=== PATIENT | male | born 1955 | race Caucasian/White ===

== ENCOUNTER 2023-04-26 10:17 | Outpatient (CLI) | payer MEDICARE, OTHER, SELFPAY | END 2023-04-26 10:18 | disposition home or self-care (01) | LOC: LAB 04-27 12:03 | PROVIDERS: PCP Family Medicine; Visit Provider Orthopaedic Surgery | DX: Z01.818 Encounter for other preprocedural examination (principal) | CPT/HCPCS: 86850; 86900; 86901 ==

== ENCOUNTER 2023-04-28 06:12 | Day surgery (SDC) | payer MEDICARE, OTHER, SELFPAY ==
[2023-04-28] VITALS (30 sets, daily range): BP systolic 94–149; BP diastolic 57–110; PULSE 62–94; RESP 14–20; TEMP 35.8–36.8; O2SAT 92–100; BMI 23.9
--- OUTSIDE RECORDS SUMMARY | 2023-04-28 06:14 | XMS_ITS | Clinical Summary ---
Author Name Unknown Organization [facility] Address [place], [place] [address] Care Team Providers Care Resident Services Supervisor Name Role Phone Kina Amador DO Primary Care Provider [phone] Allergies No known active allergies Medications Medication Sig Dispensed Refills Start Date End Date Status glucosamine-chondr oitin, 500-400 mg, (COSAMIN DS 500/400) 500-400 mg cap Take 1 capsule by mouth 3 times daily. 0 04/15/2013 Active Saw [place] Fruit 450 mg capsule Take by mouth. 0 04/15/2013 Active miscellaneous medical supply (Blood Pressure Cuff) miscIndications:El evated BP without diagnosis of hypertension As directed. BP cuff 1 Each 0 11/27/2021 Active diclofenac topical (VOLTAREN) 1 % gelIndications:Art hritis of knee, left,Chronic pain of left knee Apply 4 g topically to affected area(s) four times daily. 350 g 1 06/23/2022 Active turmeric root extract 500 mg cap Take by mouth. 0 Ac tive tadalafiL (CIALIS) 10 mg tabletIndications: Erectile dysfunction, unspecified erectile dysfunction type Take 2 tablets by mouth (20mg total ) once 30min. Before sexual activity (Max 20mg daily) 20 Tablet 6 11/27/2021 04/15/2023 Discontinue d(*Patient states no longer taking) Active Problems Problem Noted Date Diagnosed Date Lichen planus 06/23/2022 Actinic keratoses 04/15/2013 Encounters Date Type Department Care Team Description 04/16/2023 Orders Only [facility] [address] [place] [address] Kina Amador DO 1 scan: (1-Ord) NFLD-EKG-04/15/23 04/15/2023 10:25 AM [employer] Preop Visit [facility] [address] [place], [place] [id number] Kina Amador, Preoperative Exam (04/28/[address] Ocasio [facility]) 04/15/2023 Travel from Last 3 Months Immunizations Name Administration Dates Next Due Td (Age >=7 Years) 06/11/2018 Family History Medical History Relation Name Comments Cancer Father throat cancer Relation Name Status Comments Father fro m pna Mother Social History Tobacco Use Types Packs/Day Years Used Date Smoking Tobacco: Never Smokeless Tobacco: Never Tobacco Cessation:Counseling Given: Yes Alcohol Use Standard Drinks/Week Comments Yes 0 (1 standard drink = 0.6 oz pur e alcohol) PHQ-2 Answer Date Recorded PHQ-2 TOTAL SCORE 0 11/27/2021 Social Connections Answer Date Recorded Frequency of Communication with Friends and Fami ly 0 06/23/2022 Alcohol Use Answer Date Recorded How often do you have a drink containing alcohol ? 3 11/27/2021 How many drinks containing a lcohol do you have on a typical day when you are drinking? 0 11/27/2021 How often do you have five or more drinks on one occasion? 0 11/27/2021 Financial Resource Strain Answer Date R ecorded Difficulty of Paying Living Expenses 3 06/23/2022 Difficulty of Paying Living Expenses Not on file 06/23/2022 Food Insecurity Answer Date Recorded Worried About Running Out of Food in the Last Ye ar 1 06/23/2022 Transportation Needs Answer Date Record ed Lack of Transportation (Medical) 1 06/23/2022 Housing Stability Answer Date Recorded Unable to Pay for Housing in the Last Year 1 06/23/2022 Sex and Gender Information Value Date Recorded Sex Assigned at Not on file Gender Identity Not on file Sexual Orientation Not on file Obstetrics History Last Filed Vital Signs Vital Sign Reading Time Taken Comments Blood Pressure 136/80 04/15/2023 10:34 AM [employer] Pulse 80 04/15/2023 10:34 AM [employer] Temperature 36.4 ??C (97.5 ??F) 04/15/2023 10:[address] Respiratory Rate 18 07/01/2022 11:05 AM CDT Oxygen Saturation 98% 04/15/2023 10:34 AM [employer] Inhaled Oxygen Concentration - - Weight 71.4 kg (157 lb 8 oz) 04/15/2023 10:34 AM [employer] Height 174 cm (5' 8.5) 04/15/2023 10:34 AM [employer] Body Mass Index 23.6 04/15/2023 10:34 AM [employer] Plan of Treatment Health Maintenance Due Date Last Done Comments COVID-19 vaccine series (#1) 1955 Tdap 1966 Zoster (shingles) series for age 50+ (1 of 2) 2005 Pneumococcal series for age 65+ (1 of 1 - PCV) 2020 Influenza for age 65+ 11/14/2022 Depression screening for age 12+ 11/27/2022 11/27/2021, 08/16/2018, 08/12/2018, Additional history exists Medicare Wellness for age 65+ 11/28/2022 11/27/2021 Lipids for age 45-75 07/24/2023 07/23/2018 BMI (ht and wt on same day) for age 18+ 04/15/2024 04/15/2023, 06/23/2022, 11/27/2021, Additional history exists Tetanus booster 06/11/2028 06/11/2018 Colonoscopy through age 75 07/01/203207/01, 06/15/2018, 05/13/2018 Hepatitis C screening for ag e 18-79 Completed 07/23/2018 Procedures Procedure Name Priority Date/Time Associated Diagnosis Comments EKG 12 LEAD Routine 04/16/2023 8:45 AM [employer] Pre-op exam ME READING EKG - NO CHARGE, COMP ONLY Routine 04/16/2023 8:44 AM [employer] Pre-op exam HEMOGLOBIN Routine 04/15/2023 11:38 AM [employer] Pre-op exam from Last 3 Months Results * EKG 12 LEAD (04/16/2023 8:45 AM [employer]) Kina Amador DO EKG ORD * ME READING EKG - NO CHARGE, COMP ONLY (04/16/2023 8:44 AM [employer]) Kina Amador DO PB - PROVIDER READ INGS * HEMOGLOBIN (04/15/2023 11:38 AM [employer]) HEMOGLOBIN 14.6 13.5 - 17.5 g/dL 04/15/2023 12:00 PM [employer] [facility] MCV 92 80 - 100 fL 04/15/2023 12:00 PM [employer] [facility] Blood BLOOD SPECIMEN / Unknown Venipuncture / Unknown 04/15/2023 11:38 AM [employer] 04/15/2023 11:41 AM [employer] Kina Amador DO HEMATOLOGY [facility] [address] [place] [address], from Last 3 Months Advance Directives Latest Code Status on File Code Status Date Activated Date Inactivated Comments Full Code 07/01/2022 9:39 AM 07/01/2022 1:23 PM Question Answer Comments Code Status Discussion: Reviewed Preferences Code Status History Code Status Date Activated Date Inactivated Comments Full Code 06/15/2018 2:25 PM 06/15/2018 7:33 PM Care Teams Resident Services Supervisor Relationship Specialty Start Date End Date Kina Amador DO [address] [place] [address] PCP - General Family Practice 03/10/16
[2023-04-28] MEDS: OXYCODONE (CR) 10 MG TAB.ER.12H PO (06:26)
[2023-04-28] MEDS: CELECOXIB 200 MG CAPSULE PO (06:26)
[2023-04-28] MEDS: ACETAMINOPHEN 500 MG TABLET 1000 MG PO ×2 (06:26→21:31)
[2023-04-28] MEDS: SODIUM CHLORIDE 0.9 % (FLUSH) 10 ML SYRINGE IVF (06:40)
[2023-04-28] MEDS: LACTATED RINGERS 1000 ML 1,000 ML 100 ML IV ×2 (06:40→08:19)
[2023-04-28] MEDS: MIDAZOLAM HCL 1 MG/ML inj IVP (07:13)
[2023-04-28] MEDS: fentaNYL 100 MCG/2 ML inj IVP (07:13)
--- NOTE | 2023-04-28 07:15 | XR_ITS ---
Patient: JEANIE CRAWFORD Facility:?[facility] Patient ID:?[id number] Site Patient ID:?[id number]. Site :?[id number] Study:?XRay-Hip Right W/ C ARM-04/28/2023 9:39:32 AM Ordering Physician:?GIOVANY MIRANDA Final Report: Indication: Hip replacement surgery Technique: AP hip fluoroscopic images. Fluoroscopy time 52.9 seconds. Findings/Impression: Hardware from a total hip arthroplasty is in satisfactory position. Dictated by Arnel Harmon MD @ 05/01/2023 5:40:53 AM Signed by:?Arnel Harmon MD @05/01/2023 5:40:53 AM (Electronic Signature)
--- NOTE | 2023-04-28 07:24 | SUR.PREOP ---
TIME?OUT:?712 PT/osmin benavides RN/cookie elliott CRNA/papito schultz CRNA?VERIFICATION?OF?SURGICAL?SITE,?PROCEDURE,?AND?CONSENT OBTAINED?PRIOR?TO?INVASIVE?PROCEDURE.
[2023-04-28] MEDS: CEFAZOLIN 2 GM INJ IVP (07:31)
[2023-04-28] MEDS: TRANEXAMIC ACID 100 MG/ML INJ 1000 MG IV (07:35)
--- NOTE | 2023-04-28 07:36 | P.NB_ITS ---
Nerve Block Nerve Block Time Seen by Provider: 07:12 Date Seen: 04/28/23 Type of block requested by surgeon for post-operative analgesia: NESS/LFCN Side: left Time out performed: Yes Verification of patient name: Yes Verification of date of : Yes Site marking: site marked Name of person performing procedure: Samantha Assistants, if any: Nerissa Continuous monitoring Was continuous monitoring of O2 sat, B/P, quality assurance monitor chassis, recorded every 15 minutes?: Yes Procedure Checklist: sterile prep and needles Ultrasound guided. Images saved: Yes Medications given in 5ml increments after negative aspiration: Marcaine %: 0.5 mL: 30 Decadron (mg): 10 Precedex (mcg): 25 Patient tolerated procedure well: Yes Block Charges Block Charge (with Pro Fee): Other Periph Nerve Block (NESS/LFC) Use of Ultrasound Machine for Block: Yes- US Guidance/pain block
--- NOTE | 2023-04-28 08:55 | XR_ITS ---
Patient: JEANIE CRAWFORD Facility:?[facility] Patient ID:?[id number] Site Patient ID:?[id number]. Site :?[id number] Study:?XRay-Hip Left POST OP CORNEL-04/28/2023 2:01:14 PM Ordering Physician:?GIOVANY MIRANDA Final Report: Indication: LEFT CORNEL POST OP FILM Technique: AP hip centered pelvis and lateral view left hip Findings/Impression: Hardware from a left total hip arthroplasty is in satisfactory position. Bone alignment is normal. No sign of acute fracture. Postop changes are within normal limits. Dictated by Arnel Harmon MD @ 05/01/2023 5:44:33 AM Signed by:?Arnel Harmon MD @05/01/2023 5:44:33 AM (Electronic Signature)
--- NOTE | 2023-04-28 08:58 | P.ORPRC_ITS ---
Procedure Note Date of procedure: 04/28/23 Procedure: PREOPERATIVE DIAGNOSIS: Left hip osteoarthritis POSTOPERATIVE DIAGNOSIS: Left hip osteoarthritis NAME OF OPERATION: Left total hip arthroplasty SURGEON: Karthik Ocasio MD LEARNING AND DEVELOPMENT OFFICER: Patti Villanueva PA-C, LUCIANO Gonzalez IMPLANTS: 1. [employer] Randolph # 52 sector ingrowth cup 2. 36 x 52 +4 neutral polyethylene 3. Actis # 5 standard collared ingrowth stem 4. 36 + 1.5 ceramic femoral head ANESTHESIA: General ESTIMATED BLOOD LOSS: 600 cc COMPLICATIONS: None SPECIMENS: None DRAINS: None PREOPERATIVE ANTIBIOTICS: Ancef 2 grams INDICATIONS: The patient is a 68-year-old with a longstanding history of sev ere, unrelenting left hip pain secondary to end-stage left hip osteoarthritis. Despite appropriate nonoperative management, including activity modification, use of an assist device, anti-inflammatories, [id number]-kxa-dcxootf pain medication, physical therapy and injections, they continue to have pain and disability. Operative intervention was offered. The risks, benefits and expected outcomes were discussed in detail. These included but were not limited to: Infection, bleeding, injury to blood vessel or nerve, venous thromboembolism. All questions were answered to their satisfaction. Use of an distribution center assistant was necessary throughout the case for patient positioning and safety, soft tissue retraction and closure. PROCEDURE: The patient was placed supine on the [place] table. General anesthesia was administered. The distribution center assistant made sure the patient was properly positioned. The left hip was prepped and draped in the usual sterile fashion. The image intensifier was brought in for a perfect AP pelvis and a perfect double tear drop AP view of each hip which were used for intraoperative templating with our fluoroscopic guide. An oblique incision was made 3 cm distal and 3 cm lateral to the anterior superior iliac spine. The distribution center assistant retracted the soft tissues to protect them. Subcutaneous dissection was taken with electrocautery to the superficial fascia. The fascia was divided in line with the incision. Blunt dissection was carried medially to the tensor fascia caitlin and sartorius interval. Deep dissection was carried with electrocautery. The circumflex vessels were cau terized and divided. The capsule was exposed and then divided in a T-fashion, tagged with #1 Ethibond sutures. Retractors were placed in the joint, held by the distribution center assistant. The corkscrew was placed in the femoral head. The neck cut was made in the subcapital region. We made a second neck cut more distal. The napkin ring of bone was removed. The femoral head was removed intact. Acetabular retractors were placed, held by the distribution center assistant. The labrum was sharply debrided. The capsule was released. The 43 mm reamer was used to the true medial wall. We then enlarged in 2 mm increments using the image intensifier for our reamer placement. We impacted the cup which had excellent purchase. We placed the polyethylene. Attention was then turned to the proximal femur. The limb was placed in 140 degrees of external rotation, maximum extension and adduction. A significant amount of time was spent releasing the capsule to allow us to deliver the femur into the wound and complete the femoral side safely. Retractors were held by the distribution center assistant throughout the femoral preparation. The box car bracer and canal finder were used. Broaches were used to a stable size. The calcar reamer was used. Trial components were placed. The hip was reduced and was found to be stable with appropriate soft tissue tension. Length and offset had been nicely restored using the image intensifier and our fluoroscopic guide. Trial components were removed. The stem was impacted. We placed the femoral head. Again, the hip was reduced and was found to be stable with appropriate soft tissue tension. Length and offset had been nicely restored. The distribution center assistant did a three minute dilute Betadine solution soak. The distribution center assistant irrigated the wound with 3 liters of normal saline via pulse lavage. The as sistant repaired the anterior capsule with a #1 Vicryl and our previously placed Ethibond sutures. The distribution center assistant closed the fascia over the tensor fascia caitlin with a #1 PDO Stratafix, subcutaneous tissues with 2-0 Vicryl, skin with a running 3-0 Stratafix and glue. A dry dressing was applied by the distribution center assistant. Sponge and needle counts were correct x 2. The patient tolerated the procedure well; there were no apparent complications. They were awakened and extubated in the operating room, sent to the Post-Anesthesia Care Unit in satisfactory condition. PLAN: 1. The patient will be mobilized with physical therapy, weight-bearing as tolerates 2. Xarelto x 5 days then aspirin x 30 days will be used for DVT prophylaxis 3. The patient will be discharged once medically appropriate
[2023-04-28] MEDS: LACTATED RINGERS 1000 ML 1,000 ML 35 ML IV (09:38)
[2023-04-28] MEDS: LACTATED RINGERS 1000 ML 1,000 ML 50 ML IV (09:38)
[2023-04-28] MEDS: fentaNYL 100 MCG/2 ML inj 50 MCG IVP (09:44)
--- NOTE | 2023-04-28 09:46 | W.ANESCHARGE ---
Anesthesia Charges Start Date/Time Anesthesia Start Date: 04/28/23 Anesthesia Start Time: 07:26 Stop Date/Time Anesthesia Stop Date: 04/28/23 Anesthesia Stop Time: 09:43
[2023-04-28] MEDS: HYDROmorphone 0.5 mg/0.5 ml inj IVP ×5 (09:49→13:37)
--- NOTE | 2023-04-28 10:08 | W.ANESCHARGE ---
Anesthesia Charges Start Date/Time Anesthesia Start Date: 04/28/23 Anesthesia Start Time: 07:26 Stop Date/Time Anesthesia Stop Date: 04/28/23 Anesthesia Stop Time: 09:43
[2023-04-28] MEDS: ACETAMINOPHEN INJ 1,000 MG/100 ML VIAL 400 MG IVPB (10:22)
[2023-04-28] MEDS: hydrOXYzine pamoate 25 MG CAPSULE PO (10:22)
[2023-04-28] MEDS: ONDANSETRON 2 MG/ML inj 4 MG IVP ×2 (11:12→15:10)
[2023-04-28] MEDS: CEFAZOLIN 1 GM in 0.9 % SODIUM CHLORIDE Mini-bag 100 ML IVPB ×2 (13:37→21:25)
--- NOTE | 2023-04-28 14:37 | P.IMCN_ITS ---
Date of Consult Patient: Leslee Patient Consult date: 04/28/23 Primary Care Provider: Kina Amador, Consult Narrative Reason for consult: Medical management of comorbidities Narrative: Dylan Cleaning is a 68 year old male who presented to the hospital today for an elective L CORNEL. There were no surgical or anesthetic complications noted during procedure. Patient's H&P reviewed, PCP is Dr. Amador at the [facility]. Past medical history significant for: OA, generally healthy otherwise. History of blood clots: No Postoperative plan: Home with daughter. When I see Dylan on the floor, he's moderately nauseated. No chest pain or dyspnea, no other concerns for hospitalist team. Review of Systems Status of ROS: Reports: 10 or more systems reviewed and unremarkable except as noted in History and below [facility] Medical History (Updated 02/11/23 @ 11:28 by Salome Polanco) Left wrist fracture (03/07/16) ?S62.102A - Fracture of unspecified carpal bone, left wrist, initial encounter for closed fracture (ICD-10) Surgical History (Updated 04/28/23 @ 14:41 by Pennie Richards MD) Status post left hip replacement ?Z96.642 - Presence of left artificial hip joint (ICD-10) Social History Smoking Status: Never smoker How often do you have a drink containing alcohol: monthly or less AUDIT-C Alcohol total score: 1 Non-prescribed substance use: denies use Caffeine: Yes Meds Home Medications and Allergies Home Medications Medication Instructions Recorded Confirmed Type diclofenac sodium 1 % topical gel 4 g topical QID PRN 04/24/23 04/28/23 History tadalafil 10 mg tablet (Cialis) 10 mg PO DAILY PRN 04/24/23 04/28/23 History Allergies Allergy/AdvReac Type Severity Reaction Status Date / Time No Known Drug Allergies Allergy Verified 04/28/23 06:47 Exam Narrative: Exam Narrative: GEN: Alert and oriented, appears nauseated and mildly pale HEENT: EOMIs bilaterally, no scleral icterus CV: RRR, No concerning murmurs R: LCTA bilaterally without concerning wheezing, air movement adequate Ext: wearing Drew Hose bilaterally Skin: No concerning skin lesions or rashes on exposed skin Neuro: No focal deficits Psych: Appropriate Const: Vital Signs, click to edit/add: Vital Signs - 24 hr 04/28/23 06:48 04/28/23 07:13 04/28/23 07:15 Temperature 97.8 F Pulse Rate 86 86 80 Pulse Rate [Pulse Oximeter] Respiratory Rate 16 16 16 Blood Pressure 135/100 H 139/104 H 141/86 H Blood Pressure [Le ft Arm] Pulse Oximetry 97 99 97 Oxygen Delivery Me thod Room Air Nasal Cannula Nasal Cannula Oxygen Flow Rate 2 2 04/28/23 07:20 04/28/23 09:40 04/28/23 09:45 Temperature 98.2 F Pulse Rate 86 72 77 Pulse Rate [Pulse Oximeter] Respiratory Rate 16 14 15 Blood Pressure 136/89 125/80 121/85 Blood Pressure [Le ft Arm] Pulse Oximetry 99 100 100 Oxygen Delivery Me thod Nasal Cannula Room Air Room Air Oxygen Flow Rate 2 04/28/23 09:50 04/28/23 09:55 04/28/23 10:00 Temperature 98.2 F Pulse Rate 71 76 63 Pulse Rate [Pulse Oximeter] Respiratory Rate 16 17 18 Blood Pressure 126/97 H 126/82 114/83 Blood Pressure [Le ft Arm] Pulse Oximetry 100 100 100 Oxygen Delivery Me thod Room Air Room Air Room Air Oxygen Flow Rate 04/28/23 10:05 04/28/23 10:10 04/28/23 10:15 Temperature 98.2 F Pulse Rate 78 67 62 Pulse Rate [Pulse Oximeter] Respiratory Rate 17 17 14 Blood Pressure 104/65 123/67 117/67 Blood Pressure [Le ft Arm] Pulse Oximetry 100 100 95 Oxygen Delivery Me thod Room Air Room Air Room Air Oxygen Flow Rate 04/28/23 10:20 04/28/23 10:25 04/28/23 10:30 Temperature 97.8 F Pulse Rate 73 73 70 Pulse Rate [Pulse Oximeter] Respiratory Rate 16 16 16 Blood Pressure 108/80 114/82 96/61 Blood Pressure [Le ft Arm] Pulse Oximetry 97 97 98 Oxygen Delivery Me thod Room Air Room Air Room Air Oxygen Flow Rate 04/28/23 10:35 04/28/23 10:45 04/28/23 11:00 Temperature 97.0 F L 96.4 F L Pulse Rate 78 Pulse Rate [Pulse Oximeter] 70 62 Respiratory Rate 17 16 16 Blood Pressure 94/57 L Blood Pressure [Le ft Arm] 102/67 98/67 Pulse Oximetry 97 99 98 Oxygen Delivery Me thod Room Air Room Air Room Air Oxygen Flow Rate 04/28/23 11:15 04/28/23 11:30 04/28/23 11:34 Temperature 96.6 F L 96.4 F L 97.0 F L Pulse Rate 70 Pulse Rate [Pulse Oximeter] 63 66 Respiratory Rate 16 16 16 Blood Pressure Blood Pressure [Le ft Arm] 106/63 102/64 102/67 Pulse Oximetry 92 95 Oxygen Delivery Me thod Room Air Room Air Room Air Oxygen Flow Rate 04/28/23 11:45 04/28/23 12:15 04/28/23 12:45 Temperature 97.7 F Pulse Rate Pulse Rate [Pulse Oximeter] 79 72 80 Respiratory Rate 16 16 16 Blood Pressure Blood Pressure [Le ft Arm] 119/77 133/88 127/74 Pulse Oximetry 98 98 93 Oxygen Delivery Me thod Room Air Room Air Room Air Oxygen Flow Rate 04/28/23 13:45 Temperature 97.5 F L Pulse Rate Pulse Rate [Pulse Oximeter] 63 Respiratory Rate 16 Blood Pressure Blood Pressure [Le ft Arm] 125/89 Pulse Oximetry 98 Oxygen Delivery Me thod Room Air Oxygen Flow Rate Assessment and Plan Assessment and plan (1) Status post left hip replacement: Problem comment: -04/28/23Amarjit Status: Acute Plan - pain management and prophylaxis per orthopedic surgery team - manage nausea - continue home medications for comorbidities - anticipate routine postoperative course
--- NOTE | 2023-04-28 19:27 | PC.NURSE ---
End of shift [id number] - Pt arrived from PACU at approximately 1045. Pt reported feeling 8-9/10 pain on arrival and was noted to be experiencing severe nausea. Pain medication given per MAR, initial doses did not decrease pt reported pain, however later doses appeared to improve pt reported pain with pt reporting pain in L hip to be 5/10. Dressing is CDI, ice pack in place. Medication given for nausea management per MAR, pt reluctant to eat or drink due to feeling nauseous. Pt unable to void during shift and did not get out of bed during shift. PT attempted to get pt up, increased nausea, dizziness, and BP occurred and attempt was aborted. Family at bedside, pt appears to be resting comfortably at end of shift.
[2023-04-28] MEDS: SENNOSIDES 1 TAB TABLET 2 TAB PO (21:26)
[2023-04-29] MEDS: OXYCODONE 5 MG TABLET PO ×3 (00:03→08:57)
[2023-04-29 03:00] VITALS: BP 116/85; PULSE 76; RESP 16; TEMP 36.9; O2SAT 97
--- NOTE | 2023-04-29 06:49 | PC.NURSE ---
End of shift [id number]: A&O and cooperative. Hypertensive VS otherwise stable. Rating pain in left hip 7-12/23 see eMAR for intervention. CMS intact. Pt denies n/v. Refused scheduled tylenol. Dressing to hip c/d/i. Ice to hip. Up with assist walker and gait belt to chair. Tolerated well. Voiding adequate amounts.
[2023-04-29 06:53] LABS: Basophils Percent Auto 0.1 % (0.0-3.0); Eosinophils Percent Auto 0.1 % (0.0-7.0); Hematocrit 36.9 % (37.0-53.0); Hemoglobin* 12.5 gm/dL (13.5-17.5); Immature Granulocytes Pct Auto 0.9 %; Lymphocytes Percent Auto 12.9 % (20-44); Mean Corpuscular HGB Conc 34 gm/dL (32-36); Mean Corpuscular Hemoglobin 31 pg (26-34); Mean Corpuscular Volume 93 fL (80-100); Monocytes Percent Auto 11.3 % (0.0-11.0); Neutrophils Percent Auto 74.7 % (42.0-72.0); Platelet Count* 219 K/uL (140-440); RDW Coefficient of Variation % 12.1 % (11.5-15.5); Red Blood Count 3.99 m/uL (4.30-5.90); White Blood Count* 12.05 K/uL (4.50-11.00)
[2023-04-29 07:08] LABS: Potassium* 4.3 mmol/L (3.6-5.1); Sodium* 136 mmol/L (135-149)
[2023-04-29 07:11] LABS: Creatinine* 0.8 mg/dL (0.5-1.5); Estimated Glomerular Filt Rate 96 ml/min
[2023-04-29 07:12] LABS: Blood Urea Nitrogen* 15 mg/dL (7-30)
[2023-04-29 07:20] LABS: Slide Review Reflex No
--- NOTE | 2023-04-29 08:21 | PM.ORPN ---
Subjective Subjective Time Seen by Provider: 07:30 Date Seen: 04/29/23 Principal diagnosis: Status post left hip replacement Interval history: Dylan is comfortable at rest in the recliner, however does report having pain levels 7/10. No current nausea or vomiting and is looking forward to having breakfast. Ortho Exam Narrative Exam Narrative: Alert and oriented x3. Patient is in no acute distress. Converses without labored breathing. Hearing is grossly intact. Ambulates with a walker. Examination left hip shows the dressing is in place and intact. Very minimal soft tissue edema about the left hip. Quad strength 5/5. He is not able however to perform a straight leg raise. CMS intact left lower extremity. Bilateral calves are soft and nontender. Const Vital Signs, click to edit/add: Vital Signs - 24 hr 04/28/23 09:40 04/28/23 09:45 04/28/23 09:50 Temperature 98.2 F Pulse Rate 72 77 71 Pulse Rate [Pulse Oximeter] Respiratory Rate 14 15 16 Blood Pressure 125/80 121/85 126/97 H Blood Pressure [Left Arm] Pulse Oximetry 100 100 100 Oxygen Delivery Method Room Air Room Air Room Air 04/28/23 09:55 04/28/23 10:00 04/28/23 10:05 Temperature 98.2 F Pulse Rate 76 63 78 Pulse Rate [Pulse Oximeter] Respiratory Rate 17 18 17 Blood Pressure 126/82 114/83 104/65 Blood Pressure [Left Arm] Pulse Oximetry 100 100 100 Oxygen Delivery Method Room Air Room Air Room Air 04/28/23 10:10 04/28/23 10:15 04/28/23 10:20 Temperature 98.2 F Pulse Rate 67 62 73 Pulse Rate [Pulse Oximeter] Respiratory Rate 17 14 16 Blood Pressure 123/67 117/67 108/80 Blood Pressure [Left Arm] Pulse Oximetry 100 95 97 Oxygen Delivery Method Room Air Room Air Room Air 04/28/23 10:25 04/28/23 10:30 04/28/23 10:35 Temperature 97.8 F Pulse Rate 73 70 78 Pulse Rate [Pulse Oximeter] Respiratory Rate 16 16 17 Blood Pressure 114/82 96/61 94/57 L Blood Pressure [Left Arm] Pulse Oximetry 97 98 97 Oxygen Delivery Method Room Air Room Air Room Air 04/28/23 10:45 04/28/23 11:00 04/28/23 11:15 Temperature 97.0 F L 96.4 F L 96.6 F L Pulse Rate Pulse Rate [Pulse Oximeter] 70 62 63 Respiratory Rate 16 16 16 Blood Pressure Blood Pressure [Left Arm] 102/67 98/67 106/63 Pulse Oximetry 99 98 92 Oxygen Delivery Method Room Air Room Air Room Air 04/28/23 11:30 04/28/23 11:34 04/28/23 11:45 Temperature 96.4 F L 97.0 F L Pulse Rate 70 Pulse Rate [Pulse Oximeter] 66 79 Respiratory Rate 16 16 16 Blood Pressure Blood Pressure [Left Arm] 102/64 102/67 119/77 Pulse Oximetry 95 98 Oxygen Delivery Method Room Air Room Air Room Air 04/28/23 12:15 04/28/23 12:45 04/28/23 13:45 Temperature 97.7 F 97.5 F L Pulse Rate Pulse Rate [Pulse Oximeter] 72 80 63 Respiratory Rate 16 16 16 Blood Pressure Blood Pressure [Left Arm] 133/88 127/74 125/89 Pulse Oximetry 98 93 98 Oxygen Delivery Method Room Air Room Air Room Air 04/28/23 14:45 04/28/23 15:45 04/28/23 16:45 Temperature 97.9 F 97.0 F L Pulse Rate Pulse Rate [Pulse Oximeter] 76 85 88 Respiratory Rate 16 16 20 Blood Pressure Blood Pressure [Left Arm] 139/110 H 130/80 149/95 H Pulse Oximetry 94 98 98 Oxygen Delivery Method Room Air Room Air Room Air 04/28/23 19:00 04/28/23 23:47 04/29/23 03:00 Temperature 97.5 F L 98.4 F Pulse Rate Pulse Rate [Pulse Oximeter] 94 87 76 Respiratory Rate 20 18 16 Blood Pressure Blood Pressure [Left Arm] 139/100 H 144/96 H 116/85 Pulse Oximetry 99 98 97 Oxygen Delivery Method Room Air Room Air Room Air Assessment and Plan Assessment and plan (1) Status post left hip replacement: Problem details: -04/28/23Amarjit Status: Acute Assessment and Plan: Plan for discharge is today to home if they meet discharge criteria. DVT prophylaxis includes Xarelto 10 mg daily for total of 5 days, then aspirin 81 mg twice daily for 30 days, Drew stockings x1 month may remove for 1 hr per day, frequent ambulation Remove dressing 1 week. Observe wound and phone Orthopedics with any questions or concerns Use Ice on operative hip unrestricted. Return to clinic in 1 week with PA for a wound check Return to clinic in 6 weeks with surgeon Minimize narcotic use. Wean off and discontinue soon as possible. Activities as tolerated. No strenuous activity. Attend outpt PT
[2023-04-29 08:37] VITALS: BP 126/93; PULSE 94; RESP 18; TEMP 36.2; O2SAT 96
[2023-04-29] MEDS: SENNOSIDES 1 TAB TABLET 2 TAB PO (08:57)
[2023-04-29] MEDS: RIVAROXABAN 10 MG TABLET PO (08:58)
--- NOTE | 2023-04-29 10:48 | PC.SOCIAL ---
Discharge planning: back up worker met with pt about his discharge plan of going home. Pt stated that he feels good about going home and that his daughter will be staying with him for ten days. Social work to follow-up as needed.
--- NOTE | 2023-04-29 10:52 | PC.NURSE ---
shift note: pt dc'd to home after review of dc instructions. belongings and copies of dc instructions sent with pt at dc. additional pair of teds sent with pt at dc. ICE andres x2 sent with pt at dc. IV dc'd intact Rt hand. pain 4/10 and tolerated at dc. drsg to lt hip c/d/i. cms intact. PP+ bilat
== END 2023-04-29 10:54 | disposition home or self-care (01) ==
LOC: OR 06:13 → MEDSURG 06:18
PROVIDERS: PCP Family Medicine; Visit Provider Orthopaedic Surgery
PROC: (CPT 27130; principal; 2023-04-28 07:15)
DX: M16.12 Unilateral primary osteoarthritis, left hip (principal); G89.18 Other acute postprocedural pain
CPT/HCPCS: 27130; 01214; 36415; 64450; 73501; 76000; 76942; 82565; 84132; 84295; 84520; 85025; 97110; 97116; 97161; 97165; 97535; A9270; C1776; J0131; J0330; J0690; J1100; J1170; J2250; J2405; J2704; J2710; J2795; J3010; J7120

== ENCOUNTER 2023-06-03 10:00 | Outpatient (RCR) | payer MEDICARE, OTHER, SELFPAY ==
--- NOTE | 2023-04-22 12:05 | PT.OPEX ---
PT Amanda Outpatient Eval PT [facility] Outpatient Eval Start: 04/22/23 07:46 Freq: Status: Active Protocol: Document 04/22/23 10:42 JERICHOV (Rec: 04/22/23 10:56 KLJolie [id number]) E-signed By Aye Richardson, PT Physical Therapy Outpatient Evaluation Insurance Information Recert Due Date 07/17/23 Insurance Name Medicare B Insurance Information/Comments [employer] Medical Diagnosis Pre and post operative left CORNEL Treating Diagnosis Left hip pain, limited hip ROM , antalgic gait, muscle weakness Referring MD Ocasio Subjective Subjective Dylan reports to PT to prepare for upcoming L CORNEL scheduled for 04/28/[address] Ocasio. Reports ongoing worsening pain to the point that he rarely sits or lays down. He has trouble sleeping at night. He has modified all of his activity and transfers to avoid bending and putting weight through his left leg. Occasionally uses SEC when pain is severe. He should have had surgery 2 years ago but had to work on his house as the Trendmeon was falling off. He has a commode, Stock Counter , SEC, FWW and 4WW. Also notes ongoing L knee pain. X-ray indicating severe L hip OA. PMH: L knee scope Pain Comments Date of Last Physician Visit 02/11/23 Current Work Status Retired Precautions Therapy Limitations/Systems Review Not Limited Objective Other/Pertinent Objective Gait: no AD, limited stance time or terminal hip extension , mid foot strike Unable to assess PROM/strength d/t inability to lay supine d /t pain during IE Assessment Assessment/Impression Dylan is a 68 year old male presenting to PT for preparation of upcoming L CORNEL DOS 04/28/23 d/t end stage OA. Session focused on education of anterior hip precautions, post-operative fall prevention precautions, transfers, gait with AD, stair negotiation, post-operative exercises. He is able to verbalize precautions and independence with exercises, gait and stairs. He is appropriate to proceed with surgery at this time. Primary Functional Limitations Standing, walking, sitting, sleeping Plan of Care Rehabilitation Potential Good Physical Therapy Goals By end of session today, patient will... Demonstrate appropriate gait pattern with FWW to utilize post surgery for optimal safety when ambulating Demonstrate ability to negotiate stairs using appropriate stair pattern post surgery for optimal safety when at home and in community Verbalize understanding of most appropriate home set up including needed equipment for optimal safety and recovery post surgery Be independent in HEP program to show ability to perform appropriate exercises post surgery Treatment Plan/Direct Interventions Gait Training,Ice/Cold/ Vasopneumatic,Joint Mobilization,Manual Therapy, Neuromuscular Re-ed,Self-Care/ Home Management,Therapeutic Activities,Therapeutic Exercises Frequency/Duration Will re-evaluate following surgery Patient Will Be Discharged From Therapy Completion of LTG(s), Independent w/HEP, Independently Progressing Evaluation Billing Untimed Code Treatment Minutes 20 Complexity Low Certification Information Initial Certification Date 04/22/23 Ending Certification Date 07/17/23 Provider Signature Shows Agreement With POC & Medical Necessity Physician Signature & Date Requested Please Sign/Date Here Physician Comment/Change : Physician NPI Number #
== END 2023-06-03 10:57 | disposition home or self-care (01) ==
PROVIDERS: PCP Family Medicine; Visit Provider Orthopaedic Surgery
DX: M16.12 Unilateral primary osteoarthritis, left hip (principal); Z96.642 Presence of left artificial hip joint; M25.552 Pain in left hip; Z74.09 Other reduced mobility; R26.9 Unspecified abnormalities of gait and mobility; M62.81 Muscle weakness (generalized); Z51.89 Encounter for other specified aftercare
CPT/HCPCS: 97110; 97140; 97161; 97164; 97535

== ENCOUNTER 2024-05-10 13:45 | Outpatient (RCR) | payer MEDICARE, SELFPAY ==
--- NOTE | 2024-04-22 13:53 | PT.OPEX ---
[facility] Eval Start: 04/22/24 09:29 Freq: Status: Active Protocol: Document 04/22/24 09:29 KLV (Rec: 04/22/24 13:52 KLV [id number]) E-signed By Aye Richardson PT Physical Therapy Outpatient Evaluation Insurance Information Recert Due Date 07/17/24 Insurance Name Medicare B,Other; See Comments Insurance Information/Comments [employer] Medical Diagnosis Right hamstring muscle strain Treating Diagnosis Right hamstring muscle pain Imaging Report Information 03/30/24: x-ray These show normal alignment without medial or lateral joint space narrowing or osteophytic spurring. There is no obvious fracture. Subjective Subjective Dylan reports to PT with primary complaint of right hamstring pain with initial onset about 5 months ago when he was stretching in bed. He felt a sharp pain in his lateral right knee and has had off and on pain from this since. He notes occasionally the leg feels like it wants to give out on him. Most notable descending stairs and occasionally walking. He has not tried ice or heat. Has avoided elliptical. Has not tried anything else. Goal is to eliminate lateral knee pain to be able to negotiate stairs and return to normal workouts/doing projects around the house. PMH: L CORNEL Pain Comments 12/23 worst Date of Last Physician Visit 03/30/24 Current Work Status Retired Objective Other/Pertinent Objective Knee ROM: -R 0-120 -L 0-120 Hamstring 90/90: -R 25 deg short of full extension with distal pain -L 15 deg short of full extension no pain Palpation: TTP distal bicep femoris insertion, hypomobility anterior translation of proximal fibular head All knee ligamentous and meniscus testing: - Functional Test Performed & Score LEFS: 57/80 Assessment Assessment/Impression Patient is a 69 year old male presenting to physical therapy for evaluation and treatment of right hamstring pain following a NWB stretching related injury. Patient presents with limited HS mobility and TTP to distal bicep femoris tendon insertion consistent with hamstring muscle strain/tendonitis. These impairments are limiting the patients ability to descend stairs, squat, perform heavy duty chores at home, walk long distances. Patient appears motivated to participate in PT and presents with good prognosis to improve mobility, strength, proprioception and return to functional activities with skilled physical therapy intervention. Primary Functional Limitations descend stairs, squat, perform heavy duty chores at home, walk long distances Plan of Care Rehabilitation Potential Good Physical Therapy Goals In 4 visits: Pt will demonstrate equal and pain free hamstring mobility in order to demonstrate functional improvement Pt will be able to negotiate stairs with reciprocal gait with 0 instances of buckling or pain over 1 week period In 8 visits: Pt will report <2/10 knee pain with all kennel hand/ activities Pt will be independent with self management of symptoms Pt will exhibit 9 pt improvement in LEFS Outcome measure to demonstrate functional improvement and progress towards goals. Treatment Plan/Direct Interventions Gait Training,Ice/Cold/ Vasopneumatic,Joint Mobilization,Manual Therapy, Neuromuscular Re-ed,Self-Care/ Home Management,Therapeutic Activities,Therapeutic Exercises Frequency/Duration 1x/wk for 4 weeks with additional 2-4 sessions prn based on progress Patient Will Be Discharged From Therapy Completion of LTG(s), Independent w/HEP, Independently Progressing Evaluation Billing Untimed Code Treatment Minutes 20 Complexity Low Certification Information Initial Certification Date 04/22/24 Ending Certification Date 07/17/24 Provider Signature Required Yes Provider Signature Shows Agreement With POC & Medical Necessity Physician NPI Number Write NPI# Here Physician Comment/Change : Physician Signature & Date Requested Please Sign/Date Here
== END 2024-05-10 14:20 | disposition home or self-care (01) ==
PROVIDERS: PCP Family Medicine; Visit Provider Orthopaedic Surgery
DX: S76.311A Strain of muscle, fascia and tendon of the posterior muscle group at thigh level, right thigh, initial encounter (principal); Z51.89 Encounter for other specified aftercare
CPT/HCPCS: 97110; 97140; 97161